=== PATIENT | male | born 1970 | race Caucasian/White ===

== ENCOUNTER 2022-11-16 15:37 | Inpatient (IN) | payer OTHER ==
[2022-11-16 18:04] VITALS: BMI 27.4
[2022-11-16] MEDS ORDERED: BISMUTH SUBSALICYLATE 524 MG/30 ML PO PRN (19:42)
[2022-11-16] MEDS ORDERED: POLYETHYLENE GLYCOL (HEALTHYLAX) 3350 17 GM PACKET PO PRN (19:42)
[2022-11-16] MEDS ORDERED: ACETAMINOPHEN 325 MG TABLET (FP) PO PRN ×2 (19:42)
[2022-11-16] MEDS ORDERED: IBUPROFEN 600 MG TABLET (FP) PO PRN (19:42)
[2022-11-16] MEDS ORDERED: NALOXONE HCL (KLOXXADO) 8 MG SPRAY NS PRN (19:42)
[2022-11-16] MEDS ORDERED: DICYCLOMINE HCL 10 MG CAPSULE PO PRN (19:42)
[2022-11-16] MEDS ORDERED: MAG HYDROX/AL HYDROX/SIMETH 30 ML UNIT-DOSE CUP PO PRN (19:42)
[2022-11-16] MEDS ORDERED: ONDANSETRON *ODT* 4 MG TABLET SL PRN (19:42)
[2022-11-16] MEDS ORDERED: LOPERAMIDE HCL 2 MG CAPSULE PO PRN (19:42)
[2022-11-16] MEDS ORDERED: BENZOCAINE/MENTHOL (CHLORASEPTIC ) LOZENGE MM PRN (19:42)
[2022-11-16] MEDS ORDERED: IBUPROFEN 400 MG TABLET (FP) PO PRN (19:42)
[2022-11-16] MEDS: INSULIN SLIDING SCALE (NOVOLOG) 1 VIAL SQ SCH ×2 (20:15→21:41)
[2022-11-16] MEDS: THIAMINE HCL 100 MG TABLET (FP) PO SCH (21:40)
[2022-11-16] MEDS: METHOCARBAMOL 500 MG TABLET PO PRN (21:41)
[2022-11-16] MEDS ORDERED: MELATONIN 5 MG TABLETS PO SCH (22:00)
[2022-11-17] MEDS: INSULIN SLIDING SCALE (NOVOLOG) 1 VIAL SQ SCH ×4 (06:40→22:30)
[2022-11-17] MEDS: PRENATAL VITAMINS W/ FOLIC ACID TABLET (FP) PO SCH (10:32)
[2022-11-17] MEDS: chlordiazePOXIDE HCL 25 MG CAPSULE PO SCH ×3 (10:32→22:29)
[2022-11-17] MEDS ORDERED: INSULIN (NOVOLOG) ASPART 100 UNITS/ML 10ML VIAL ONE ×2 (10:40→22:02)
[2022-11-17 10:43] LABS: HEMATOCRIT 44.6 % (35.4-49); HEMOGLOBIN 14.9 GM/dL (11.7-16.9); MCH 29.8 pg (25.7-33.7); MCHC 33.3 g/dl (32.0-35.9); MEAN CELL VOLUME 89.5 fl (80-96); MEAN PLT VOLUME 8.7 fl (7.5-11.1); PLATELET COUNT 173 10^3/uL (134-434); RBC 4.99 M/mm3 (4.00-5.60); RDW 14.1 % (11.9-15.9); WHITE BLOOD COUNT 5.2 K/mm3 (4.0-10.0)
[2022-11-17] MEDS: LOSARTAN POTASSIUM 50 MG TABLET PO SCH (12:29)
[2022-11-17 12:38] LABS: ALBUMIN 4.1 g/dl (3.4-5.0); CALCIUM 9.1 mg/dL (8.5-10.1)
[2022-11-17 12:39] LABS: BLOOD UREA NITROGEN 23.7 mg/dL (7-18)
[2022-11-17 12:44] LABS: BILIRUBIN,TOTAL 0.4 mg/dL (0.2-1); TOT PROT 6.7 g/dl (6.4-8.2)
[2022-11-17] MEDS ORDERED: INSULIN (LEVEMIR) 100 UNITS/ML UNITS SQ SCH (22:00)
[2022-11-17] MEDS: THIAMINE HCL 100 MG TABLET (FP) PO SCH (22:29)
[2022-11-17] MEDS: SUVOREXANT 10 MG TABLET PO PRN (22:30)
[2022-11-17] MEDS: ALBUTEROL SO4 HFA INHALER IH PRN (22:35)
[2022-11-18] MEDS: chlordiazePOXIDE HCL 25 MG CAPSULE PO SCH ×4 (05:11→22:13)
[2022-11-18] MEDS ORDERED: INSULIN (NOVOLOG) ASPART 100 UNITS/ML 10ML VIAL ONE ×4 (08:16→22:20)
[2022-11-18] MEDS: INSULIN SLIDING SCALE (NOVOLOG) 1 VIAL SQ SCH ×5 (08:17→22:18)
[2022-11-18] MEDS: PRENATAL VITAMINS W/ FOLIC ACID TABLET (FP) PO SCH (10:26)
[2022-11-18] MEDS: ALBUTEROL SO4 HFA INHALER IH PRN ×2 (10:26→22:19)
[2022-11-18] MEDS: LOSARTAN POTASSIUM 50 MG TABLET PO SCH (10:27)
[2022-11-18] MEDS ORDERED: INSULIN (NOVOLOG) ASPART 100 UNITS/ML 10ML VIAL SQ ONE (17:13)
[2022-11-18] MEDS ORDERED: INSULIN (LEVEMIR) 100 UNITS/ML UNITS SQ SCH (22:00)
[2022-11-18] MEDS: THIAMINE HCL 100 MG TABLET (FP) PO SCH (22:13)
[2022-11-18] MEDS: SUVOREXANT 10 MG TABLET PO PRN (22:14)
[2022-11-19] MEDS: chlordiazePOXIDE HCL 25 MG CAPSULE PO SCH ×4 (05:21→22:15)
[2022-11-19] MEDS: INSULIN SLIDING SCALE (NOVOLOG) 1 VIAL SQ SCH ×4 (07:33→22:17)
[2022-11-19] MEDS ORDERED: INSULIN (NOVOLOG) ASPART 100 UNITS/ML 10ML VIAL ONE ×3 (07:39→16:54)
[2022-11-19] MEDS: PRENATAL VITAMINS W/ FOLIC ACID TABLET (FP) PO SCH (10:17)
[2022-11-19] MEDS: LOSARTAN POTASSIUM 50 MG TABLET PO SCH (10:17)
[2022-11-19] MEDS: ALBUTEROL SO4 HFA INHALER IH PRN (10:19)
[2022-11-19] MEDS: NICOTINE 10 MG CARTRIDGE (INHALER) IH PRN (15:33)
[2022-11-19] MEDS: THIAMINE HCL 100 MG TABLET (FP) PO SCH (22:14)
[2022-11-19] MEDS: SUVOREXANT 10 MG TABLET PO PRN (22:14)
[2022-11-19] MEDS: INSULIN (LEVEMIR) 100 UNITS/ML UNITS SQ SCH (22:16)
[2022-11-20] MEDS: chlordiazePOXIDE HCL 10 MG CAPSULE PO SCH ×4 (05:51→22:22)
[2022-11-20] MEDS: INSULIN SLIDING SCALE (NOVOLOG) 1 VIAL SQ SCH ×4 (07:20→22:23)
[2022-11-20] MEDS: PRENATAL VITAMINS W/ FOLIC ACID TABLET (FP) PO SCH (10:13)
[2022-11-20] MEDS: LOSARTAN POTASSIUM 50 MG TABLET PO SCH (10:13)
[2022-11-20] MEDS: ALBUTEROL SO4 HFA INHALER IH PRN ×3 (10:13→22:23)
[2022-11-20] MEDS: NICOTINE 10 MG CARTRIDGE (INHALER) IH PRN (15:25)
[2022-11-20] MEDS ORDERED: INSULIN (NOVOLOG) ASPART 100 UNITS/ML 10ML VIAL ONE ×2 (16:38→21:59)
[2022-11-20] MEDS: MAGNESIUM HYDROX 2400MG/30ML ORAL SUSPENSION 30 ML CUP PO PRN (16:43)
[2022-11-20] MEDS: SUVOREXANT 10 MG TABLET PO PRN (22:00)
[2022-11-20] MEDS: THIAMINE HCL 100 MG TABLET (FP) PO SCH (22:22)
[2022-11-20] MEDS: INSULIN (LEVEMIR) 100 UNITS/ML UNITS SQ SCH (22:22)
[2022-11-21] MEDS: MAGNESIUM HYDROX 2400MG/30ML ORAL SUSPENSION 30 ML CUP PO PRN (01:08)
[2022-11-21] MEDS: NICOTINE 10 MG CARTRIDGE (INHALER) IH PRN ×2 (01:08→10:20)
[2022-11-21] MEDS: chlordiazePOXIDE HCL 10 MG CAPSULE PO SCH ×2 (05:47→17:26)
[2022-11-21] MEDS: INSULIN SLIDING SCALE (NOVOLOG) 1 VIAL SQ SCH ×4 (06:03→22:31)
[2022-11-21] MEDS: PRENATAL VITAMINS W/ FOLIC ACID TABLET (FP) PO SCH (10:13)
[2022-11-21] MEDS: LOSARTAN POTASSIUM 50 MG TABLET PO SCH (10:14)
[2022-11-21] MEDS ORDERED: INSULIN (NOVOLOG) ASPART 100 UNITS/ML 10ML VIAL ONE ×2 (10:17→16:44)
[2022-11-21] MEDS: ALBUTEROL SO4 HFA INHALER IH PRN (12:06)
[2022-11-21] MEDS: THIAMINE HCL 100 MG TABLET (FP) PO SCH (21:35)
[2022-11-21] MEDS: INSULIN (LEVEMIR) 100 UNITS/ML UNITS SQ SCH (22:31)
[2022-11-22] MEDS: METHOCARBAMOL 500 MG TABLET PO PRN (03:03)
[2022-11-22] MEDS ORDERED: chlordiazePOXIDE HCL 10 MG CAPSULE PO ONE (05:00)
[2022-11-22] MEDS ORDERED: INSULIN (NOVOLOG) ASPART 100 UNITS/ML 10ML VIAL ONE ×2 (06:06→09:04)
[2022-11-22] MEDS: INSULIN SLIDING SCALE (NOVOLOG) 1 VIAL SQ SCH ×2 (06:07→10:13)
[2022-11-22] MEDS: NICOTINE 10 MG CARTRIDGE (INHALER) IH PRN ×2 (06:13→10:15)
[2022-11-22 09:50] VITALS: BP 137/78; PULSE 68; RESP 17; TEMP 97.3
[2022-11-22] MEDS: PRENATAL VITAMINS W/ FOLIC ACID TABLET (FP) PO SCH (10:10)
[2022-11-22] MEDS: LOSARTAN POTASSIUM 50 MG TABLET PO SCH (10:10)
== END 2022-11-22 12:29 | disposition home or self-care (01) | DRG 774 ==
LOC: YASAS 15:37 → Y6N 21:16
PROVIDERS: ADMIT Allergy & Immunology; ATTEND Surgery
PROC: HZ2ZZZZ Detoxification Services for Substance Abuse Treatment (ICD-10-PCS; principal; 2022-11-16)
DX: F10.230 Alcohol dependence with withdrawal, uncomplicated (principal); F14.20 Cocaine dependence, uncomplicated; F12.20 Cannabis dependence, uncomplicated; F19.282 Other psychoactive substance dependence with psychoactive substance-induced sleep disorder; I10 Essential (primary) hypertension; J45.20 Mild intermittent asthma, uncomplicated; E11.65 Type 2 diabetes mellitus with hyperglycemia; Z79.4 Long term (current) use of insulin; R76.11 Nonspecific reaction to tuberculin skin test without active tuberculosis; Z87.891 Personal history of nicotine dependence; Z28.310 Unvaccinated for COVID-19; Z28.9 Immunization not carried out for unspecified reason
CPT/HCPCS: 36415; 71046-TC-FY; 80053; 82962; 85027; 86780; 93005; 93010; C9803-CS; U0003; U0005